=== PATIENT | male | born 2000 | race Two or more races ===

== ENCOUNTER 2025-01-02 11:46 | Emergency (ER) | payer SELFPAY ==
[2025-01-02 11:47] VITALS: PULSE 110; RESP 18; O2SAT 99
--- NOTE | 2025-01-02 11:51 | PC.NURSE ---
PT AND FRIEND LEFT. THEY WANTED TO GO HOME AND NOT STAY. [facility] HERE AND TALKED TO THEM.
== END 2025-01-02 13:00 | disposition left against medical advice (07) ==
LOC: SERX 11:56
PROVIDERS: Emergency Provider Emergency Medicine
DX: Z53.21 Procedure and treatment not carried out due to patient leaving prior to being seen by health care provider (principal)